=== PATIENT | male | born 1995 | race Two or more races ===

== ENCOUNTER 2018-03-26 00:34 | Emergency (ER) | payer SELFPAY ==
[~2018-03-26] VITALS: Ht 167.6 cm; Wt 72.6 kg
[2018-03-26 00:46] VITALS: BP 121/65
[2018-03-26] MEDS ORDERED: cefTRIAXone SOD 1,000 MG VL IM ONE (01:45)
[2018-03-26] MEDS ORDERED: LIDOCAINE W/ EPINEPHRINE 2% INJ 20ML VIAL IJ ONE (01:45)
== END 2018-03-26 02:22 | disposition home or self-care (01) ==
LOC: ER 00:34
DX: S61.412A Laceration without foreign body of left hand, initial encounter (principal); W26.9XXA Contact with unspecified sharp object(s), initial encounter; Y93.89 Activity, other specified; Y99.8 Other external cause status; Y92.89 Other specified places as the place of occurrence of the external cause
CPT/HCPCS: 12032; 96372; 99284; J0696

== ENCOUNTER 2023-10-06 14:40 | Emergency (ER) | payer MEDICAID, OTHER ==
[~2023-10-06] VITALS: Ht 170.2 cm; Wt 81.8 kg
[2023-10-06 16:49] VITALS: BP 128/95; PULSE 70; RESP 18; TEMP 100.1; O2SAT 98
[2023-10-06] MEDS ORDERED: NAPR-746 PO (17:10)
[2023-10-06] MEDS ORDERED: CEPH500C PO (17:10)
[2023-10-06] MEDS: TETANUS-DIPTH-ACEL PERTUSSIS 0.5ML SYR Tdap IM ONE (17:20)
== END 2023-10-06 17:24 | disposition home or self-care (01) ==
LOC: ER 14:40
DX: S81.812A Laceration without foreign body, left lower leg, initial encounter (principal); Z79.899 Other long term (current) drug therapy; W27.0XXA Contact with workbench tool, initial encounter; Y93.89 Activity, other specified; Y92.89 Other specified places as the place of occurrence of the external cause; Y99.8 Other external cause status
CPT/HCPCS: 12002; 90471; 90715